=== PATIENT | female | born 1945 | race Caucasian/White ===

== ENCOUNTER 2016-05-28 10:49 | Day surgery (SDC) ==
[2016-05-28] MEDS ORDERED: NS 250 ML ONE (11:03)
[2016-05-28 11:50] LABS: HEMATOCRIT 23.3 % (37.0-47.0); HEMOGLOBIN 6.7 g/dL (12.0-16.0); MCHC 28.8 g/dL (33-37); MCV 83.5 FL (81-99); MPV 11.2 FL (7.4-10.4); RBC 2.79 XMIL (4.2-5.4)
[2016-05-28 15:31] VITALS: BP 145/71
== END 2016-05-28 15:35 | disposition home or self-care (01) ==
LOC: INF 10:49
PROVIDERS: ATTEND Internal Medicine Gastroenterology
DX: D50.0 Iron deficiency anemia secondary to blood loss (chronic) (principal); K92.2 Gastrointestinal hemorrhage, unspecified; L03.116 Cellulitis of left lower limb; B95.8 Unspecified staphylococcus as the cause of diseases classified elsewhere; Z79.899 Other long term (current) drug therapy; Z79.01 Long term (current) use of anticoagulants
CPT/HCPCS: 85027; 86850; 86900; 86901; 86920; 87070; 87077; 87186; J7050; P9016